=== PATIENT | female | born 1980 | race Caucasian/White ===

== ENCOUNTER → 2023-05-18 15:14 | Outpatient (BNVA) | payer SELFPAY | PROVIDERS: Visit Provider Dermatology | DX: L57.0 Actinic keratosis (principal); L81.4 Other melanin hyperpigmentation; L82.1 Other seborrheic keratosis; D22.5 Melanocytic nevi of trunk; L02.222 Furuncle of back [any part, except buttock and flank]; Z85.828 Personal history of other malignant neoplasm of skin; Z85.820 Personal history of malignant melanoma of skin | CPT/HCPCS: 17000; 99213 ==

== ENCOUNTER 2023-11-28 13:56 | Outpatient (CLI) | payer OTHER, SELFPAY ==
[2023-11-28 16:46] LABS: Lactate Dehydrogenase 211 U/L (135-214)
== END 2023-11-28 13:57 | disposition home or self-care (01) ==
LOC: LAB 14:00
PROVIDERS: PCP Dermatology; Visit Provider Dermatology
DX: Z85.820 Personal history of malignant melanoma of skin (principal)
CPT/HCPCS: 83615

== ENCOUNTER 2023-12-12 09:26 | Outpatient (CLI) | payer OTHER, SELFPAY ==
--- NOTE | 2023-12-12 09:38 | CT_ITS ---
WS: [id number] CT chest w con* [id number] HISTORY: ENLARGED LYMPH NODES/BASAL CELL CARCINOMA OF SKIN TECHNIQUE: Axial imaging performed through the thorax. Coronal and sagittal reformats are submitted. All CT scans at [facility] use at least one of these dose optimization techniques: automated exposure control; mA and/or kV adjustment per patient size (includes targeted exams where dose is mat ched to clinical indication); or iterative reconstruction. CONTRAST: Omnipaque 350; 100 mL IV. DLP: 487.57 mGy.cm COMPARISON: None available. Lungs and central airway: Normal. Pleura: Normal. No pleural effusion. Heart and pericardium: Normal size heart with no pericardial effusion. Mediastinum and hussain: No mediastinum or hilar adenopathy. There are a few very small axillary lymph n odes with normal fatty hussain. No significantly enlarged nodes. Vessels: Normal size aortic and pulmonary artery. No coronary artery calcifications. Chest wall and lower neck: Bilateral breast implants. Upper abdomen: Mild hepatic steatosis. No bile duct dilatation. Coarse attenuation within the liver w ith focal fatty sparing. Liver appears enlarged. No adrenal mass. Osseous structures: No destructive process. CT/CT chest w con* [id number] IMPRESSION: 1. No pulmonary mass or pneumonia. No pleural effusion. 2. No mediastinal or hilar adenopathy. There are a few small axillary lymph no avi with normal fatty hussain. 3. Hepatic steatosis with areas of fatty sparing and mild hepatomegaly.
--- NOTE | 2023-12-12 09:38 | CT_ITS ---
WS: [id number] CT NECK WITH CONTRAST HISTORY: ENLARGED LYMPH NODES/BASAL CELL CARCINOMA OF SKIN TECHNIQUE: Contiguous 2 mm axial images are performed through the neck with intravenous contrast. Sag ittal and coronal reformats are also submitted. All CT scans at [facility] use at least one o f these dose optimization techniques: automated exposure control; mA and/or kV adjustment per patient size (includes targeted exams where dose is matched to clinical indication); or iterative reconstruc tion. CONTRAST: CONTRAST: Omnipaque 350; 100 mL IV. DLP: 487.57 mGy.cm COMPARISON: None available. Nasopharynx, oropharynx, hypopharynx and larynx are unremarkable. No soft tissue masses or abnormal e nhancement. Torus tubarius and fossa of Rosenmuller and parapharyngeal fat are normal. There is small lymph nodes at the mandibular angles with the largest on the LEFT 12 mm. Fatty hilum i s still present. Along the cervical chains there are multiple but small lymph nodes identified. Large st level 2 lymph node is on the LEFT at 10 mm. Small level 3 lymph nodes. Thyroid gland and salivary glands are normally enhancing. Very tiny nodule in the RIGHT thyroid. No osseous abnormalities. Visualized portions of the skull base demonstrate no abnormalities. Orbits and globes are within norm al limits. No soft tissue masses. Visualized paranasal sinuses and mastoid air cells are normal. Lung apices are clear. CT/CT neck w con* [id number] IMPRESSION: 1. There are a few bilateral cervical chain lymph nodes at level 1 and level 2 . Lymph nodes on the LEFT are indeterminate by size criteria. Shape of the lymp h nodes of the fatty hilum suggest these are probably reactive lymph nodes. At this time there is no lymph node suspicious for metastatic disease by imaging. 2. If lymph nodes continue to increase in size PET/CT or biopsy may be necessa ry.
[2023-12-12] MEDS: iohexol 350 mg/mL 500 mL Btl (per mL) IV (10:30)
== END 2023-12-12 09:27 | disposition home or self-care (01) ==
PROVIDERS: PCP Dermatology; Visit Provider Dermatology
DX: R59.0 Localized enlarged lymph nodes (principal); Z85.820 Personal history of malignant melanoma of skin
CPT/HCPCS: 70491; 71260

== ENCOUNTER 2024-06-08 09:16 | Outpatient (CLI) | payer OTHER, SELFPAY ==
--- NOTE | 2024-06-08 09:30 | PETR_ITS ---
PROCEDURE INFORMATION: Exam: PET/CT Whole Body Exam date and time: 06/08/2024 10:16 AM Age: 43 years old Clinical indication: Condition or disease; Primary cancer: HX of malignant melanoma of skin; Symptoms: Enlarged lymph nodes; Additional info: HX of malignant melanoma of sking, enlarged lymph nodes LABS AND CLINICAL REPORTS: Glucose: 100 mg/dl Treatment strategy for malignancy (PET staging): Initial Staging (PI) TECHNIQUE: Imaging protocol: Following at least four-hour fasting and following the injection of radiopharmaceutical, low dose CT images were obtained. Then, PET images were obtained. Attenuation corrected images were constructed using the CT scan. Fused images of PET and CT were reviewed. The standardized uptake values (SUV) reported below are maximum values within a region of interest, expressed in gm/ml. Exam includes the whole body. SUV normalization method: BodyWeight Radiopharmaceutical: 11 mCi F-18 FDG (Fluorodeoxyglucose), IV. Time of imaging post radiopharmaceutical administration: 45 minutes Injection site: right ac COMPARISON: CT chest w con* [id number] 12/12/2023 9:52 AM FINDINGS: Brain: Visualized brain has normal physiologic uptake. Pharynx: No abnormal uptake. Larynx: No abnormal uptake. Lungs, pleura and trachea: No abnormal uptake. Heart: Normal physiologic uptake. Mediastinal space: No abnormal uptake. Liver: No abnormal uptake. Gallbladder and biliary ducts: No abnormal uptake. Pancreas: No abnormal uptake. Spleen: No abnormal uptake. Adrenal glands: No abnormal uptake. Kidneys and ureters: Normal physiologic uptake. Stomach and bowel: No abnormal uptake. Vasculature: No abnormal uptake. Lymph nodes: No abnormal uptake. No lymphadenopathy in the head, neck, chest, abdomen, pelvis, and extremities. Skeleton: No abnormal uptake in the visualized axial and appendicular skeleton. Soft tissues: Bilateral breast implants. METRICS: Mediastinal blood pool: SUV max = 2.2 Liver uptake: SUV max = 2.5 PET/PET WB melanoma INITIAL [id number] IMPRESSION: No FDG avid metastatic disease.
== END 2024-06-08 09:17 | disposition home or self-care (01) ==
PROVIDERS: PCP Dermatology; Visit Provider Dermatology
DX: R59.0 Localized enlarged lymph nodes (principal); Z98.82 Breast implant status
CPT/HCPCS: 78816; A9552